=== PATIENT | female | born 1950 | race Caucasian/White ===

== ENCOUNTER → 2025-03-05 | Outpatient (CLI) | payer MEDICARE, BC, SELFPAY ==
--- NOTE | 2025-03-05 13:00 | XR_ITS ---
Examination:Right hip AP, lateral, AP pelvis 3 views Technique: Hip AP lateral, AP pelvis, 3 views Exam date and time:March 05, 2025 1436 hours INDICATIONS: Right hip pain beginning 2 weeks ago. FINDINGS: No right hip fracture or dislocation Prominent osteopenia Mild bilateral hip osteoarthritis. IMPRESSION: Mild bilateral hip osteoarthritis.
--- NOTE | 2025-03-05 13:00 | XR_ITS ---
Examination: Lumbar spine, 5 views Technique: Lumbar spine AP, lateral, coned lateral lower lumbar spine, bilateral obliques 5 views Exam date and time: February 25, 2025 1436 hours INDICATIONS: Low back pain 2 months. FINDINGS: Prominent lumbar dextroscoliosis 25 degrees Severe osteopenia Diffuse advanced facet arthropathy. No lumbar fracture. Diffuse moderate to advanced lumbar degenerative disc disease most prominent L4-L5 IMPRESSION: Diffuse moderate to advanced lumbar degenerative disc disease most prominent L4-L5
== END | disposition home or self-care (01) ==
PROVIDERS: Referring Provider Orthopaedic Surgery; Visit Provider Orthopaedic Surgery
DX: M51.360 Other intervertebral disc degeneration, lumbar region with discogenic back pain only (principal); M16.0 Bilateral primary osteoarthritis of hip
CPT/HCPCS: 72110; 73502